=== PATIENT | female | born 1975 | race Caucasian/White ===

== ENCOUNTER 2019-02-18 10:28 | Emergency (ER) | payer MEDICARE, OTHER ==
[~2019-02-18] VITALS: Ht 170.2 cm; Wt 75.0 kg
[2019-02-18] MEDS ORDERED: LORA-999 PO (10:38)
[2019-02-18] MEDS ORDERED: ARIP2 PO (10:38)
[2019-02-18 12:05] VITALS: BP 127/76
== END 2019-02-18 12:12 | disposition home or self-care (01) ==
LOC: EMS 10:29
DX: M79.661 Pain in right lower leg (principal); J45.909 Unspecified asthma, uncomplicated; F41.9 Anxiety disorder, unspecified; F31.9 Bipolar disorder, unspecified; Z79.899 Other long term (current) drug therapy

== ENCOUNTER 2019-02-20 19:36 | Inpatient (IN) | payer MEDICARE, MEDICAID ==
[~2019-02-20] VITALS: Ht 170.2 cm; Wt 75.3 kg
[~2019-02-20 19:36] MED LIST: ARIP2 PO; LORA-999 PO
[2019-02-20] MEDS ORDERED: CLON0.5T PO (20:04)
[2019-02-20 22:47] LABS: BASOPHILS % (AUTO) 0.4 % (0.0-2.0); EOSINOPHILS % (AUTO) 0.2 % (1.0-6.0); HEMATOCRIT 40.2 % (36-46); HEMOGLOBIN 13.5 g/dL (12.0-16.0); LYMPHOCYTES # (AUTO) 2.4 K/uL (1.0-4.8); LYMPHOCYTES % (AUTO) 36.9 % (22.0-44.0); MEAN CORPUSCULAR HEMOGLOBIN 29.9 pg (26.0-34.0); MEAN CORPUSCULAR HGB CONC 33.5 G/dL (31.0-37.0); MEAN CORPUSCULAR VOLUME 89 fL (80-100); MONOCYTES # (AUTO) 0.5 K/uL (0.1-1.0); MONOCYTES % (AUTO) 7.6 % (2.0-9.0); NEUTROPHILS # (AUTO) 3.5 K/uL (1.8-7.7); NEUTROPHILS % (AUTO) 54.9 % (40.0-70.0); PLATELET COUNT (AUTO) 191 K/uL (150-450); RED BLOOD CELL COUNT(AUTO) 4.51 MIL/uL (4.00-5.20)
[2019-02-20 22:55] LABS: ANION GAP 6 mmol/L (8-16); CALCIUM, TOTAL 9.2 mg/dL (8.8-10.5); CARBON DIOXIDE 30 mmol/L (22-29); CHLORIDE 102 mmol/L (98-107); CREATININE 0.79 mg/dL (0.60-1.30); GLOMERULAR FILTR. RATE CALC > 60 mL/min (>60); GLUCOSE,RANDOM 99 mg/dL (70-110); POTASSIUM 4.3 mmol/L (3.5-5.1); SODIUM SERUM 138 mmol/L (136-145); UREA NITROGEN, BLOOD 24 mg/dL (7-18)
[2019-02-20 23:10] LABS: ALANINE AMINOTRANSFERASE 19 U/L (12-78); ALBUMIN 3.8 g/dL (3.4-5.0); ALKALINE PHOSPHATASE 87 U/L (46-116); ASPARTATE AMINOTRANSFERASE 16 U/L (15-37); BILIRUBIN,TOTAL 0.3 mg/dL (0.1-1.0); HCG,QUANTITATIVE < 1 mIU/mL (0-6); TOTAL PROTEIN, SERUM 7.5 g/dL (6.4-8.2)
[2019-02-20 23:48] LABS: AMPHET/METH SCREEN,URINE NEGATIVE (NEGATIVE); BARBITURATE SCREEN, URINE NEGATIVE (NEGATIVE); BENZODIAZEPINES SCREEN,URINE NEGATIVE (NEGATIVE); CANNABINOID SCREEN,URINE NEGATIVE (NEGATIVE); COCAINE SCREEN,URINE NEGATIVE (NEGATIVE); METHADONE SCREEN, URINE NEGATIVE (NEGATIVE); OPIATE SCREEN,URINE NEGATIVE (NEGATIVE)
[2019-02-20 23:49] LABS: PHENCYCLIDINE SCREEN,URINE NEGATIVE (NEGATIVE)
[2019-02-21 01:03] LABS: ACETAMINOPHEN < 2 mcg/mL (10-30)
[2019-02-21 01:07] LABS: SALICYLATE 1.1 mg/dL (2.8-20.0)
[2019-02-21] MEDS ORDERED: ACETAMINOPHEN 500 MG TABLET PO ONE (03:30)
[2019-02-21] MEDS ORDERED: HALOPERIDOL 5 MG TABLET PO PRN (04:30)
[2019-02-21] MEDS ORDERED: ZOLPIDEM TARTRATE 10 MG TABLET PO PRN (04:30)
[2019-02-21 06:26] VITALS: BP 126/80
[2019-02-21] MEDS ORDERED: INFLUENZA VIRUS VACCINE QVS 2019-20 (3YR+)/PF 60 MCG/0.5 ML SYRINGE IM ONE (07:15)
[2019-02-21] MEDS ORDERED: PNEUMOCOCCAL VACCINE POLYVALENT 0.5 ML VIAL [PPSV23] IM ONE (07:15)
[2019-02-21] MEDS: LORazepam 1 MG TABLET PO PRN ×2 (08:26→14:30)
[2019-02-21 08:34] VITALS: BP 125/76
[2019-02-21] MEDS ORDERED: ALBUTEROL SULFATE HFA 90 MCG/PUFF 8 GM INHALER IH PRN (10:30)
[2019-02-21] MEDS ORDERED: ARIP5TAB8 PO (10:46)
[2019-02-21] MEDS ORDERED: LORA-1000 PO (10:46)
[2019-02-21] MEDS: ARIPiprazole 5 MG TABLET PO SCH (13:08)
[2019-02-21 15:30] VITALS: BP 110/82
[2019-02-21] MEDS: HYDROCORTISONE 1% 30 GM OINTMENT TP SCH (16:10)
[2019-02-21 16:30] VITALS: BP 110/82
[2019-02-22 02:17] VITALS: BP 107/64
[2019-02-22] MEDS: LORazepam 1 MG TABLET PO PRN ×3 (07:42→16:20)
[2019-02-22 08:04] LABS: CHOL/HDL RATIO 2.1 (3.9-5.7); CHOLESTEROL 171 mg/dL (131-200); FREE T4 (FREE THYROXINE) 0.74 ng/dL (0.76-1.46); HCG,QUANTITATIVE < 1 mIU/mL (0-6); HDL CHOLESTEROL 81 mg/dL (40-60); LDL CHOL (CALC.) 69 mg/dL (0-130); THYROID STIMULATING HORMONE 2.39 uIU/mL (0.36-3.74); TRIGLYCERIDES 107 mg/dL (15-150)
[2019-02-22 08:23] VITALS: BP 123/66
[2019-02-22] MEDS: HYDROCORTISONE 1% 30 GM OINTMENT TP SCH ×2 (08:34→16:21)
[2019-02-22] MEDS: ARIPiprazole 5 MG TABLET PO SCH (08:34)
[2019-02-22 16:30] VITALS: BP 107/60
[2019-02-22] MEDS ORDERED: MAG HYDROX/AL HYDROX/SIMETH ES 30 ML SUSPENSION UDCUP PO PRN (16:45)
[2019-02-22] MEDS ORDERED: IBUPROFEN 600 MG TABLET PO PRN (16:45)
[2019-02-22] MEDS: ACETAMINOPHEN 325 MG TABLET PO PRN (16:57)
[2019-02-23 01:38] VITALS: BP 103/68
[2019-02-23] MEDS: LORazepam 1 MG TABLET PO PRN ×3 (05:45→14:25)
[2019-02-23 08:13] VITALS: BP 109/69
[2019-02-23] MEDS: PANTOPRAZOLE SODIUM 40 MG DR TABLET PO SCH (08:25)
[2019-02-23] MEDS: ARIPiprazole 5 MG TABLET PO SCH (08:25)
[2019-02-23] MEDS: HYDROCORTISONE 1% 30 GM OINTMENT TP SCH ×2 (08:25→17:10)
[2019-02-23] MEDS: ACETAMINOPHEN 325 MG TABLET PO PRN (09:28)
[2019-02-23 16:26] VITALS: BP 114/74
[2019-02-24 06:00] VITALS: BP 112/70
[2019-02-24] MEDS: LORazepam 1 MG TABLET PO PRN ×4 (06:13→20:45)
[2019-02-24 08:14] VITALS: BP 103/78
[2019-02-24] MEDS: PANTOPRAZOLE SODIUM 40 MG DR TABLET PO SCH (09:01)
[2019-02-24] MEDS: ARIPiprazole 5 MG TABLET PO SCH (09:01)
[2019-02-24] MEDS: HYDROCORTISONE 1% 30 GM OINTMENT TP SCH ×2 (09:05→16:29)
[2019-02-24 16:25] VITALS: BP 118/70
[2019-02-25 05:15] VITALS: BP 122/73
[2019-02-25 08:47] VITALS: BP 125/81
[2019-02-25] MEDS: PANTOPRAZOLE SODIUM 40 MG DR TABLET PO SCH (08:49)
[2019-02-25] MEDS: ARIPiprazole 10 MG TABLET PO SCH (08:49)
[2019-02-25] MEDS: HYDROCORTISONE 1% 30 GM OINTMENT TP SCH ×2 (08:49→16:34)
[2019-02-25] MEDS: LORazepam 1 MG TABLET PO PRN ×3 (08:49→16:11)
[2019-02-25] MEDS ORDERED: ARIPiprazole LAUROXIL ER SUSPENSION 882 MG/3.2 ML SYRINGE IM SCH (11:15)
[2019-02-25] MEDS ORDERED: ARIP882S IM (15:57)
[2019-02-25] MEDS ORDERED: PANT20TA PO (16:06)
[2019-02-25 16:18] VITALS: BP 112/70
[2019-02-26 01:11] VITALS: BP 102/64
[2019-02-26 08:46] VITALS: BP 122/80
[2019-02-26] MEDS: ARIPiprazole 10 MG TABLET PO SCH (09:03)
[2019-02-26] MEDS: PANTOPRAZOLE SODIUM 40 MG DR TABLET PO SCH (09:03)
[2019-02-26] MEDS: HYDROCORTISONE 1% 30 GM OINTMENT TP SCH (09:04)
[2019-02-26] MEDS ORDERED: ARIP10TA8 PO ×2 (10:26→10:46)
[2019-02-26] MEDS ORDERED: ARIP882S IM ×2 (10:26→10:46)
[2019-02-26] MEDS ORDERED: PANT40TA25 PO (10:48)
== END 2019-02-26 13:30 | disposition home or self-care (01) | DRG 885 ==
LOC: EMS 19:37 → B2X 02-21 04:16
PROC: 3E02340 Introduction of Influenza Vaccine into Muscle, Percutaneous Approach (ICD-10-PCS; principal; 2019-02-21)
PROC: 3E0234Z Introduction of Serum, Toxoid and Vaccine into Muscle, Percutaneous Approach (ICD-10-PCS; 2019-02-21)
DX: F31.4 Bipolar disorder, current episode depressed, severe, without psychotic features (principal); R45.851 Suicidal ideations; E03.9 Hypothyroidism, unspecified; J45.909 Unspecified asthma, uncomplicated; F41.9 Anxiety disorder, unspecified; L30.9 Dermatitis, unspecified; Z91.5 Personal history of self-harm; Z23 Encounter for immunization
CPT/HCPCS: 84439; 84443; 90686; 90732; G0480; G0481

== ENCOUNTER 2019-04-14 15:49 | Emergency (ER) | payer MEDICARE, MEDICAID ==
[~2019-04-14] VITALS: Ht 170.2 cm; Wt 77.3 kg
[~2019-04-14 15:49] MED LIST changes: +ARIP10TA8 PO; -ARIP2 PO; +ARIP882S IM; -LORA-999 PO; +PANT40TA25 PO
[2019-04-14] MEDS ORDERED: LORA-999 PO (16:21)
[2019-04-14 16:35] LABS: BASOPHILS % (AUTO) 0.6 % (0.0-2.0); EOSINOPHILS % (AUTO) 0.1 % (1.0-6.0); HEMATOCRIT 37.6 % (36-46); HEMOGLOBIN 12.5 g/dL (12.0-16.0); LYMPHOCYTES # (AUTO) 2.1 K/uL (1.0-4.8); LYMPHOCYTES % (AUTO) 26.1 % (22.0-44.0); MEAN CORPUSCULAR HEMOGLOBIN 29.2 pg (26.0-34.0); MEAN CORPUSCULAR HGB CONC 33.3 G/dL (31.0-37.0); MEAN CORPUSCULAR VOLUME 88 fL (80-100); MONOCYTES # (AUTO) 0.4 K/uL (0.1-1.0); MONOCYTES % (AUTO) 5.4 % (2.0-9.0); NEUTROPHILS # (AUTO) 5.4 K/uL (1.8-7.7); NEUTROPHILS % (AUTO) 67.8 % (40.0-70.0); PLATELET COUNT (AUTO) 278 K/uL (150-450); RED BLOOD CELL COUNT(AUTO) 4.29 MIL/uL (4.00-5.20)
[2019-04-14 16:46] LABS: APPEARANCE,URINE CLEAR (CLEAR); BILIRUBIN,URINE NEGATIVE (NEGATIVE); GLUCOSE, URINE (UA) NEGATIVE (NEGATIVE); KETONES,URINE NEGATIVE (NEGATIVE); LEUKOCYTE ESTERASE ,URINE NEGATIVE (NEGATIVE); NITRATE,URINE NEGATIVE (NEGATIVE); OCCULT BLOOD,URINE NEGATIVE (NEGATIVE); PH,URINE 7.5 (5.0-8.0); PROTEIN,URINE NEGATIVE (NEGATIVE)
[2019-04-14 16:48] LABS: ANION GAP 7 mmol/L (8-16); CALCIUM, TOTAL 8.7 mg/dL (8.8-10.5); CARBON DIOXIDE 30 mmol/L (22-29); CHLORIDE 102 mmol/L (98-107); CREATININE 1.02 mg/dL (0.60-1.30); GLOMERULAR FILTR. RATE CALC 59 mL/min (>60); GLUCOSE,RANDOM 86 mg/dL (70-110); SODIUM SERUM 139 mmol/L (136-145); UREA NITROGEN, BLOOD 14 mg/dL (7-18)
[2019-04-14 16:49] LABS: AMPHET/METH SCREEN,URINE NEGATIVE (NEGATIVE); BARBITURATE SCREEN, URINE NEGATIVE (NEGATIVE); BENZODIAZEPINES SCREEN,URINE NEGATIVE (NEGATIVE); CANNABINOID SCREEN,URINE NEGATIVE (NEGATIVE); COCAINE SCREEN,URINE NEGATIVE (NEGATIVE); METHADONE SCREEN, URINE NEGATIVE (NEGATIVE); OPIATE SCREEN,URINE NEGATIVE (NEGATIVE); PHENCYCLIDINE SCREEN,URINE NEGATIVE (NEGATIVE)
[2019-04-14 17:00] LABS: ALANINE AMINOTRANSFERASE 21 U/L (12-78); ALBUMIN 3.6 g/dL (3.4-5.0); ALKALINE PHOSPHATASE 118 U/L (46-116); ASPARTATE AMINOTRANSFERASE 18 U/L (15-37); BILIRUBIN,TOTAL 0.1 mg/dL (0.1-1.0); HCG,QUANTITATIVE 1 mIU/mL (0-6); TOTAL PROTEIN, SERUM 7.4 g/dL (6.4-8.2)
[2019-04-14] MEDS ORDERED: LORazepam 1 MG TABLET PO ONE (17:00)
[2019-04-14 17:20] VITALS: BP 119/84
== END 2019-04-14 17:22 | disposition home or self-care (01) ==
LOC: EMS 15:52
DX: F31.9 Bipolar disorder, unspecified (principal); R35.0 Frequency of micturition; J45.909 Unspecified asthma, uncomplicated; F41.9 Anxiety disorder, unspecified; Z79.899 Other long term (current) drug therapy
CPT/HCPCS: 36415; 80053; 80307; 81003; 84702; 85025; 99285; G0480

== ENCOUNTER 2023-06-11 00:14 | Inpatient (IN) | payer MEDICARE, MEDICAID ==
[~2023-06-11] VITALS: Ht 170.2 cm; Wt 118.4 kg
[~2023-06-11 00:14] MED LIST changes: +ARIP10TA38 PO; -ARIP10TA8 PO; -ARIP882S IM; +ARIP882S2 IM; +LORA-999 PO; +PANT-31 PO; -PANT40TA25 PO
[2023-06-12 00:28] LABS: GLUCOMETER DEV NAME(LOC) POC.BV; POC SARS-COV2 AG, FIA NEGATIVE (NEGATIVE)
[2023-06-12 00:48] VITALS: BP 111/69; PULSE 87; RESP 18
[2023-06-12] MEDS: -PHARMACY VACCINE NOTE- MISC ONE (01:30)
[2023-06-12 01:46] VITALS: BP 126/64; PULSE 91; RESP 18; TEMP 98.4; O2SAT 100
[2023-06-12] MEDS ORDERED: OMEPRAZOLE 20 MG CAPSULE PO PRN (07:15)
[2023-06-12] MEDS ORDERED: DOCUSATE SODIUM 100 MG CAPSULE PO PRN (07:15)
[2023-06-12] MEDS ORDERED: IBUPROFEN 600 MG TABLET PO PRN (07:15)
[2023-06-12] MEDS ORDERED: MAGNESIUM HYDROXIDE SUSPENSION 30 ML UDCUP PO PRN (07:15)
[2023-06-12] MEDS ORDERED: LOPERAMIDE HCL 2 MG CAPSULE PO PRN (07:15)
[2023-06-12] MEDS ORDERED: BACITRACIN 28 GM OINTMENT TP PRN (07:15)
[2023-06-12] MEDS ORDERED: MAG HYDROX/ALUMINUM HYD/SIMETH ES 30 ML SUSPENSION UDCUP PO PRN (07:15)
[2023-06-12] MEDS ORDERED: CloNIDine HCL 0.1 MG TABLET PO PRN (07:15)
[2023-06-12] MEDS ORDERED: ONDANSETRON HCL 4 MG TABLET PO PRN (07:15)
[2023-06-12] MEDS ORDERED: PETROLATUM,WHITE 28 GM JELLY TP PRN (07:15)
[2023-06-12 08:07] VITALS: BP 122/67; PULSE 88; RESP 17; TEMP 98.6; O2SAT 98
[2023-06-12] MEDS: LORazepam 2 MG TABLET PO PRN (12:29)
[2023-06-12 20:00] VITALS: BP 114/70; PULSE 117; RESP 18; TEMP 98.3; O2SAT 95
[2023-06-12] MEDS ORDERED: LORazepam 2 MG/ML VIAL ONE (20:11)
[2023-06-12] MEDS ORDERED: HALOPERIDOL LACTATE 5 MG/ML VIAL ONE (20:12)
[2023-06-12] MEDS ORDERED: DiphenhydrAMINE HCL 50 MG/ML VIAL ONE (20:12)
[2023-06-12] MEDS: LORazepam 2 MG/ML VIAL IM ONE (20:24)
[2023-06-12] MEDS: DiphenhydrAMINE HCL 50 MG/ML VIAL IM ONE (20:24)
[2023-06-12] MEDS: HALOPERIDOL LACTATE 5 MG/ML VIAL IM ONE (20:26)
[2023-06-13 08:14] LABS: BASOPHILS % (AUTO) 0.2 % (0.0-2.0); HEMATOCRIT 34.9 % (36-46); HEMOGLOBIN 11.3 g/dL (12.0-16.0); LYMPHOCYTES # (AUTO) 1.6 K/uL (1.0-4.8); LYMPHOCYTES % (AUTO) 21.4 % (22.0-44.0); MEAN CORPUSCULAR HGB CONC 32.3 G/dL (31.0-37.0); MEAN CORPUSCULAR VOLUME 84 fL (80-100); MONOCYTES # (AUTO) 0.5 K/uL (0.1-1.0); MONOCYTES % (AUTO) 6.7 % (2.0-9.0); NEUTROPHILS # (AUTO) 5.2 K/uL (1.8-7.7); NEUTROPHILS % (AUTO) 70.7 % (40.0-70.0); PLATELET COUNT (AUTO) 179 K/uL (150-450); RED BLOOD CELL COUNT(AUTO) 4.18 MIL/uL (4.00-5.20); WHITE BLOOD COUNT (AUTO) 7.3 K/uL (4.5-11.0)
[2023-06-13 08:17] VITALS: BP 149/85; PULSE 98; RESP 17; TEMP 98.1; O2SAT 96
[2023-06-13 08:25] LABS: HEMOGLOBIN A1C 5.9 % (3.8-5.6)
[2023-06-13 08:37] LABS: ALANINE AMINOTRANSFERASE 31 U/L (12-78); ALBUMIN 3.1 g/dL (3.4-5.0); ALKALINE PHOSPHATASE 89 U/L (46-116); ANION GAP 8 mmol/L (8-16); ASPARTATE AMINOTRANSFERASE 23 U/L (15-37); BILIRUBIN,TOTAL 0.2 mg/dL (0.1-1.0); CALCIUM, TOTAL 8.8 mg/dL (8.8-10.5); CARBON DIOXIDE 27 mmol/L (22-29); CHLORIDE 100 mmol/L (98-107); CHOL/HDL RATIO 2.3 (3.9-5.7); CHOLESTEROL 156 mg/dL (131-200); CREATININE 0.67 mg/dL (0.60-1.30); GLOMERULAR FILTR. RATE CALC > 60 mL/min (>60); GLUCOSE,RANDOM 95 mg/dL (70-110); HCG,QUANTITATIVE < 1 mIU/mL (0-6); HDL CHOLESTEROL 67 mg/dL (40-60); LDL CHOL (CALC.) 75 mg/dL (0-130); POTASSIUM 4.1 mmol/L (3.5-5.1); SODIUM SERUM 135 mmol/L (136-145); TOTAL PROTEIN, SERUM 6.4 g/dL (6.4-8.2); TRIGLYCERIDES 69 mg/dL (15-150); UREA NITROGEN, BLOOD 15 mg/dL (7-18)
[2023-06-13 08:38] LABS: VALPROIC ACID < 3 mcg/mL (50-100)
[2023-06-13 08:41] LABS: LITHIUM < 0.20 mmol/L (0.60-1.20)
[2023-06-13] MEDS: INFLUENZA VIRUS VACCINE QVS 2023-24 (6MO+)/PF 60 MCG/0.5 ML SYRINGE IM. ONE (12:41)
[2023-06-13] MEDS: ALBUTEROL SULFATE HFA 90 MCG/PUFF 8 GM INHALER IH PRN (12:47)
[2023-06-13] MEDS: BENZOCAINE/MENTHOL LOZENGE PO PRN (12:48)
[2023-06-13] MEDS: PALIPERIDONE PALMITATE 234 MG/1.5 ML SYRINGE IM ONE (15:43)
[2023-06-13 20:06] VITALS: BP 118/73; PULSE 92; RESP 16; TEMP 98.3; O2SAT 96
[2023-06-14 00:56] VITALS: BP 122/73; PULSE 100; RESP 18; TEMP 98.3; O2SAT 97
[2023-06-14 08:08] VITALS: BP 129/79; PULSE 107; RESP 17; TEMP 98.6; O2SAT 98
[2023-06-14] MEDS: DIVALPROEX SODIUM 500 MG DR TABLET PO SCH (09:00)
[2023-06-14] MEDS: LITHIUM CARBONATE 300 MG CAPSULE PO SCH (09:00)
[2023-06-14] MEDS: HALOPERIDOL 5 MG TABLET PO PRN (11:43)
[2023-06-14] MEDS: DiphenhydrAMINE HCL 50 MG/ML VIAL IM ONE (14:35)
[2023-06-14] MEDS: LORazepam 2 MG/ML VIAL IM ONE (14:35)
[2023-06-14] MEDS: HALOPERIDOL LACTATE 5 MG/ML VIAL IM ONE (14:35)
[2023-06-14 20:12] VITALS: BP 105/71; PULSE 100; RESP 16; TEMP 97.5; O2SAT 98
[2023-06-15] MEDS: ZOLPIDEM TARTRATE 10 MG TABLET PO PRN (00:09)
[2023-06-15 00:10] VITALS: BP 120/66; PULSE 100; RESP 19; TEMP 97.4; O2SAT 96
[2023-06-15] MEDS ORDERED: DiphenhydrAMINE HCL 50 MG/ML VIAL ONE (04:24)
[2023-06-15] MEDS ORDERED: LORazepam 2 MG/ML VIAL ONE (04:25)
[2023-06-15] MEDS ORDERED: HALOPERIDOL LACTATE 5 MG/ML VIAL ONE (04:26)
[2023-06-15] MEDS: DiphenhydrAMINE HCL 50 MG/ML VIAL IM ONE (04:47)
[2023-06-15] MEDS: LORazepam 2 MG/ML VIAL IM ONE (04:47)
[2023-06-15] MEDS: HALOPERIDOL LACTATE 5 MG/ML VIAL IM ONE (04:47)
[2023-06-15 06:46] VITALS: BP 143/82; PULSE 100; RESP 19; TEMP 97.3; O2SAT 94
[2023-06-15 08:38] VITALS: BP 122/63; PULSE 99; RESP 18; TEMP 97.5; O2SAT 97
[2023-06-15 20:18] VITALS: BP 134/82; PULSE 95; RESP 18; TEMP 97.5
[2023-06-16 08:38] VITALS: BP 111/62; PULSE 101; RESP 18; TEMP 97.9; O2SAT 97
[2023-06-16 20:15] VITALS: BP 149/78; PULSE 108; RESP 20; TEMP 97.9; O2SAT 98
[2023-06-17 08:24] VITALS: BP 109/77; PULSE 111; RESP 17; TEMP 97.4; O2SAT 96
[2023-06-17 08:29] LABS: LITHIUM 0.36 mmol/L (0.60-1.20)
[2023-06-17 21:08] VITALS: BP 116/71; PULSE 98; RESP 17; TEMP 97.2; O2SAT 97
[2023-06-18 08:22] VITALS: BP 120/67; PULSE 98; RESP 17; TEMP 97.9; O2SAT 98
[2023-06-18 16:38] VITALS: RESP 18
[2023-06-18] MEDS: ACETAMINOPHEN 325 MG TABLET PO PRN (16:38)
[2023-06-18 17:38] VITALS: RESP 18
[2023-06-18 20:00] VITALS: BP 130/76; PULSE 92; RESP 18; TEMP 98.2; O2SAT 98
[2023-06-19 03:47] VITALS: BP 123/77; PULSE 101; RESP 18; TEMP 97.8; O2SAT 97
[2023-06-19 08:19] VITALS: BP 115/63; PULSE 97; RESP 18; TEMP 97.1; O2SAT 98
[2023-06-19] MEDS: LITHIUM CARBONATE 300 MG CAPSULE PO SCH (12:35)
[2023-06-19] MEDS: DIVALPROEX SODIUM 500 MG DR TABLET PO SCH (12:35)
[2023-06-19 20:08] VITALS: BP 157/84; PULSE 113; RESP 19; TEMP 97.8; O2SAT 98
[2023-06-20 08:34] VITALS: BP 108/66; PULSE 105; RESP 16; TEMP 97.7; O2SAT 97
[2023-06-20 20:06] VITALS: BP 127/65; PULSE 111; RESP 20; TEMP 97.6; O2SAT 95
[2023-06-21 08:22] VITALS: BP 135/70; PULSE 97; RESP 19; TEMP 97.8; O2SAT 98
[2023-06-22 02:48] VITALS: BP 113/68; PULSE 98; RESP 18; TEMP 97.6; O2SAT 94
[2023-06-22 08:38] VITALS: BP 120/75; PULSE 100; RESP 18; TEMP 97.9; O2SAT 97
[2023-06-22 09:09] LABS: LITHIUM 0.52 mmol/L (0.60-1.20)
[2023-06-22] MEDS ORDERED: LITH300C3 PO (11:38)
[2023-06-22] MEDS ORDERED: DIVA500T53 PO (11:38)
== END 2023-06-22 14:15 | disposition home or self-care (01) | DRG 885 ==
LOC: B2X 06-12 00:58
PROVIDERS: ADMIT Psychiatry & Neurology Psychiatry; ATTEND Psychiatry & Neurology Psychiatry
DX: F25.9 Schizoaffective disorder, unspecified (principal); R45.851 Suicidal ideations; Z68.41 Body mass index [BMI] 40.0-44.9, adult; Z20.822 Contact with and (suspected) exposure to COVID-19; K59.00 Constipation, unspecified; J45.909 Unspecified asthma, uncomplicated; F41.9 Anxiety disorder, unspecified; G47.00 Insomnia, unspecified; E66.9 Obesity, unspecified; Z28.21 Immunization not carried out because of patient refusal
CPT/HCPCS: 80053; 80061; 80164; 80178; 83036; 84702; 85025; 86592; J1200; J1630; J2060; J3535